=== PATIENT | female | born 1960 | race Caucasian/White ===

== ENCOUNTER 2017-10-11 11:06 | Emergency (ER) | payer OTHER ==
[2017-10-11 11:51] VITALS: BP 118/83
--- NOTE | 2017-10-11 12:47 | UC ---
Throat Pain/Nasal Stephen HPI - HPI Summary HPI Summary: 57 yo female with c/o sinus congestion. Reports 2 weeks of sinus congestion and pain with productive cough. Developed increasing fatigue and low grade fevers over the last 2 days. No n/v/d. No rash. No SOB. - History of Current Complaint Chief Complaint: UCRespiratory Stated Complaint: SINUS COMPLAINT Pain Intensity: 6 - Allergies/Home Medications Allergies/Adverse Reactions: Allergies Allergy/AdvReac Type Severity Reaction Status Date / Time Sulfa (Sulfonamide Allergy Hives Verified 10/11/17 11:55 Antibiotics) PMH/Surg Hx/FS Hx/Imm Hx Cardiovascular History: Hypertension Other History Of: Negative For: Anticoagulant Therapy - Surgical History Surgical History: Yes Surgery Procedure, Year, and Place: MYOMECTOMY 1988, 3 C-SECTIONS, 4 ABDOMINAL SURGERYS - caleb l obstruction 2006(COLOSTOMY,ILEOSTOMY AND REVERSED) HYSTERECTOMY 2004 ,RIGHT MASTECTOMY 03/2010, RIGHT BREAST RECONSTRUCTION REDUCTION AND LIFT. - Social History Alcohol Use: Weekly Substance Use Type: None Smoking Status (MU): Never Smoked Tobacco - Immunization History Most Recent Influenza Vaccination: 2012 Review of Systems Constitutional: Negative Skin: Negative Eyes: Negative ENT: Sore Throat, Nasal Discharge, Sinus Congestion, Sinus Pain/Tenderness Respiratory: Cough Cardiovascular: Negative Gastrointestinal: Negative Genitourinary: Negative Motor: Negative Neurovascular: Negative Musculoskeletal: Negative Neurological: Negative Psychological: Negative Is Patient Immunocompromised?: No All Other Systems Reviewed And Are Negative: Yes Physical Exam Triage Information Reviewed: Yes Appearance: Well-Appearing Vital Signs: Initial Vital Signs Temp 98.5 F 10/11/17 11:48 Pulse 87 10/11/17 11:48 Resp 18 10/11/17 11:48 BP 118/83 10/11/17 11:48 Pulse Ox 100 10/11/17 11:48 Vital Signs Reviewed: Yes ENT: Positive: Other - serous effusion bilaterally Dental: Positive: Other: - maxillary and frontal sinus TTP, L maxillary sinus most tender Neck: Positive: Supple, Nontender, No Lymphadenopathy Respiratory: Positive: Chest non-tender, Lungs clear Cardiovascular: Positive: RRR, No Murmur Abdomen Description: Positive: Nontender Musculoskeletal Exam: Normal Neurological Exam: Normal Psychological Exam: Normal Skin Exam: Normal Throat Pain/Nasal Course/Dx - Course Course Of Treatment: 57 yo female with sinus congestion, pain and low grade fevers. Likely has allergic rhinitis with secondary bacterial sinusitis. - Differential Dx/Diagnosis Differential Diagnosis/HQI/PQRI: Laryngitis, Pharyngitis, Sinusitis, Tonsillitis Provider Diagnoses: 1. Bacterial sinusitis. 2. Allergic rhinitis Discharge - Sign-Out/Discharge Documenting (check all that apply): Discharge/Admit/Transfer - Discharge Plan Condition: Stable Disposition: HOME Prescriptions: Amoxicillin/Clavulanate TAB* [Augmentin TAB 875*] 875 mg PO BID #14 tab Patient Education Materials: Sinusitis (ED), Allergies (ED) Referrals: Mirtha Leyva MD [Primary Care Provider] - If Needed Additional Instructions: Instructions: 1. Start antibiotics as directed 2. Take OTC allergy medication daily (ie. loratadine) - Billing Disposition and Condition Condition: STABLE Disposition: HOME
== END 2017-10-11 12:51 | disposition home or self-care (01) ==
LOC: UCEAST 11:06
DX: J32.9 Chronic sinusitis, unspecified (principal); J30.9 Allergic rhinitis, unspecified; R53.83 Other fatigue; R50.9 Fever, unspecified; I10 Essential (primary) hypertension; Z88.2 Allergy status to sulfonamides
CPT/HCPCS: 99212; G0463

== ENCOUNTER 2021-04-02 13:25 | Inpatient (IN) ==
[2021-04-02 15:05] LABS: Hematocrit 20 % (35-47); Hemoglobin 6.6 g/dL (12.0-16.0); Mean Corpuscular HGB Conc 34 g/dL (31-36); Mean Corpuscular Hemoglobin 35 pg (27-31); Mean Corpuscular Volume 104 fL (80-97); Mean Platelet Volume 8.6 fL (7.4-10.4); Platelet Count 141 10^3/uL (150-450); Red Blood Count 1.89 10^6 /uL (3.70-4.87); Red Cell Distribution Width 30 % (10-15); White Blood Count 9.4 10^3/uL (3.5-10.8)
[2021-04-02 15:06] LABS: ABS Basophils 0.1 10^3/ul (0-0.2); ABS Eosinophils 0.1 10^3/ul (0-0.6); ABS Lymphocytes 0.8 10^3/ul (1.0-4.8); ABS Monocytes 0.8 10^3/ul (0-0.8); ABS Neutrophils 7.7 10^3/ul (1.5-7.7); ABS Nucleated RBC 0.4 10^3/ul; Eosinophil % 1.3 %; Lymphocyte % 8.2 %; Nucleated Red Blood Cells % 4.5
[2021-04-02 15:42] LABS: Albumin 3.7 g/dL (3.2-5.2); Albumin/Globulin Ratio 1.2 (1-3); Total Bilirubin 2.5 mg/dL (0.2-1.0); Total Protein 6.7 g/dL (6.4-8.9)
[2021-04-02] MEDS ORDERED: Iohexol 350 (CONTRAST) 500 ML MDV IV ONE (17:05)
[2021-04-02 19:34] LABS: Rapid COVID-19 Molecular Undetected (Undetected)
[2021-04-02] MEDS ORDERED: Albuterol HFA INHALER 8 gm MDI INH PRN (20:28)
[2021-04-02 23:35] LABS: Ferritin 1489.5 ng/mL (11-307)
[2021-04-03] MEDS: oxyCODONE SR 10 mg TAB PO SCH ×3 (00:59→20:55)
[2021-04-03 06:31] LABS: ABS Basophils 0.1 10^3/ul (0-0.2); ABS Eosinophils 0.2 10^3/ul (0-0.6); ABS Lymphocytes 0.7 10^3/ul (1.0-4.8); ABS Monocytes 0.8 10^3/ul (0-0.8); ABS Neutrophils 7.2 10^3/ul (1.5-7.7); ABS Nucleated RBC 0.7 10^3/ul; Eosinophil % 1.7 %; Hematocrit 20 % (35-47); Hemoglobin 6.7 g/dL (12.0-16.0); Lymphocyte % 7.8 %; Mean Corpuscular HGB Conc 34 g/dL (31-36); Mean Corpuscular Hemoglobin 34 pg (27-31); Mean Corpuscular Volume 97 fL (80-97); Nucleated Red Blood Cells % 7.4; Platelet Count 91 10^3/uL (150-450); Red Cell Distribution Width 31 % (10-15)
[2021-04-03 06:46] LABS: Albumin 3.8 g/dL (3.2-5.2); Albumin/Globulin Ratio 1.3 (1-3); Calcium 9.1 mg/dL (8.6-10.3); Globulin 2.9 g/dL (2-4); Potassium 3.7 mmol/L (3.5-5.0); Total Bilirubin 2.4 mg/dL (0.2-1.0); Total Protein 6.7 g/dL (6.4-8.9)
[2021-04-03 08:06] LABS: Anisocytosis 2+; Polychromasia 2+
[2021-04-03 08:07] LABS: Basophilic Stippling 1+
[2021-04-03] MEDS: DULoxetine DR 60 mg CAP PO SCH (08:55)
[2021-04-03 09:37] LABS: Folate 14.37 ng/mL (5.90-24.80)
[2021-04-03 12:46] LABS: Corrected Retic Count 5.5 % (0.5-1.5); Hematocrit for Retic CNT 21 % (35-47); Immature Retic Fraction 0.81; RBC Retic Count 1.89 10^6/uL (3.70-4.87)
[2021-04-03 12:52] LABS: Direct Bilirubin 0.2 mg/dL (0.03-0.18); Indirect Bilirubin 2.2 mg/dL (0.3-1.0)
[2021-04-03 14:43] LABS: Hematocrit 22 % (35-47); Hemoglobin 7.5 g/dL (12.0-16.0); Mean Corpuscular HGB Conc 34 g/dL (31-36); Mean Corpuscular Hemoglobin 32 pg (27-31); Mean Corpuscular Volume 95 fL (80-97); Mean Platelet Volume 7.8 fL (7.4-10.4); Platelet Count 71 10^3/uL (150-450); Red Blood Count 2.33 10^6 /uL (3.70-4.87); Red Cell Distribution Width 23 % (10-15); White Blood Count 7.4 10^3/uL (3.5-10.8)
[2021-04-03 14:49] LABS: Activated Partial Thrombo Time 24.9 seconds (26.0-38.0); Fibrinogen 337.9 mg/dL (110.8-404.3); INR 1.22 (0.86-1.15)
[2021-04-03] MEDS ORDERED: fentaNYL 100 mcg/2 ml 50 MCG/ML VIAL ONE (16:05)
[2021-04-04 06:03] LABS: INR 1.29 (0.86-1.15)
[2021-04-04 06:19] LABS: Albumin 3.5 g/dL (3.2-5.2); Albumin/Globulin Ratio 1.3 (1-3); Calcium 8.7 mg/dL (8.6-10.3); Direct Bilirubin 0.3 mg/dL (0.03-0.18); Globulin 2.8 g/dL (2-4); Indirect Bilirubin 2.7 mg/dL (0.3-1.0); Potassium 3.9 mmol/L (3.5-5.0); Total Protein 6.3 g/dL (6.4-8.9)
[2021-04-04 08:13] LABS: Hematocrit 22 % (35-47); Hemoglobin 7.6 g/dL (12.0-16.0); Mean Corpuscular HGB Conc 34 g/dL (31-36); Mean Corpuscular Hemoglobin 32 pg (27-31); Mean Corpuscular Volume 94 fL (80-97); Mean Platelet Volume 8.6 fL (7.4-10.4); Platelet Count 48 10^3/uL (150-450); Red Blood Count 2.38 10^6 /uL (3.70-4.87); Red Cell Distribution Width 28 % (10-15); White Blood Count 10.1 10^3/uL (3.5-10.8)
[2021-04-04] MEDS: DULoxetine DR 60 mg CAP PO SCH (09:59)
[2021-04-04] MEDS: oxyCODONE SR 10 mg TAB PO SCH ×2 (10:02→19:45)
[2021-04-04] MEDS: Polyethylene Glycol 3350 17 GM PACKET PO SCH (16:56)
[2021-04-05 05:15] LABS: Hematocrit 18 % (35-47); Hemoglobin 6.3 g/dL (12.0-16.0); Mean Corpuscular HGB Conc 34 g/dL (31-36); Mean Corpuscular Hemoglobin 33 pg (27-31); Mean Corpuscular Volume 97 fL (80-97); Mean Platelet Volume 9.5 fL (7.4-10.4); Platelet Count 30 10^3/uL (150-450); Red Blood Count 1.89 10^6 /uL (3.70-4.87); Red Cell Distribution Width 29 % (10-15); White Blood Count 6.9 10^3/uL (3.5-10.8)
[2021-04-05 05:28] LABS: Albumin 3.2 g/dL (3.2-5.2); Albumin/Globulin Ratio 1.3 (1-3); Calcium 8.2 mg/dL (8.6-10.3); Direct Bilirubin 0.2 mg/dL (0.03-0.18); Globulin 2.5 g/dL (2-4); Indirect Bilirubin 2.2 mg/dL (0.3-1.0); Total Bilirubin 2.4 mg/dL (0.2-1.0); Total Protein 5.7 g/dL (6.4-8.9)
[2021-04-05] MEDS: Polyethylene Glycol 3350 17 GM PACKET PO SCH (08:03)
[2021-04-05] MEDS: DULoxetine DR 60 mg CAP PO SCH ×2 (08:05→08:17)
[2021-04-05] MEDS: oxyCODONE SR 10 mg TAB PO SCH (08:05)
[2021-04-05] MEDS ORDERED: Atropine 1% (ORAL/SL) 15 ML BTL SL PRN (08:46)
[2021-04-05] MEDS ORDERED: Ondansetron ODT 4 mg TAB 4 MG TAB SL PRN (08:46)
[2021-04-05] MEDS ORDERED: Morphine ORAL CONCENTRATE 5 MG/0.25 ML ORAL.SYRIN PO PRN ×2 (08:46→10:18)
[2021-04-05] MEDS ORDERED: Flu vaccine *QUAD* 2021-22* 0.5 ML SYRINGE IM ONE (09:00)
[2021-04-05] MEDS ORDERED: Morphine ER 15 mg TAB ** extended release PO SCH (11:00)
[2021-04-05] MEDS: Morphine ORAL CONCENTRATE 5 MG/0.25 ML ORAL.SYRIN SL PRN ×2 (15:41→19:41)
[2021-04-05] MEDS: Morphine ER 30 mg TAB ** extended release PO SCH (18:18)
[2021-04-06] MEDS: Morphine ER 30 mg TAB ** extended release PO SCH ×2 (00:36→08:38)
[2021-04-06] MEDS: Polyethylene Glycol 3350 17 GM PACKET PO SCH (08:37)
[2021-04-06] MEDS: Morphine ORAL CONCENTRATE 5 MG/0.25 ML ORAL.SYRIN SL PRN (10:23)
[2021-04-06] MEDS ORDERED: Morphine ER 30 mg TAB ** extended release PO SCH (10:41)
[2021-04-06] MEDS: Morphine ER 15 mg TAB ** extended release PO SCH (17:16)
[2021-04-06 19:21] VITALS: BP 99/58
[2021-04-07] MEDS: Morphine ER 15 mg TAB ** extended release PO SCH ×3 (01:05→15:49)
[2021-04-07] MEDS: Senna TAB 8.6 mg TAB PO PRN (01:14)
[2021-04-07] MEDS: Morphine ORAL CONCENTRATE 5 MG/0.25 ML ORAL.SYRIN SL PRN ×2 (06:01→20:46)
[2021-04-07] MEDS: Polyethylene Glycol 3350 17 GM PACKET PO SCH (09:08)
[2021-04-07] MEDS: Docusate LIQ 100 MG/10 ML UDC PO SCH (13:44)
[2021-04-08] MEDS: Morphine ER 15 mg TAB ** extended release PO SCH ×3 (01:29→09:39)
[2021-04-08] MEDS: Senna TAB 8.6 mg TAB PO PRN ×2 (01:29→09:38)
[2021-04-08] MEDS: Polyethylene Glycol 3350 17 GM PACKET PO SCH (09:38)
[2021-04-08] MEDS: Docusate LIQ 100 MG/10 ML UDC PO SCH (09:40)
== END 2021-04-08 15:45 | disposition hospice, home (50) | DRG 542 ==
LOC: ED 13:25 → SUATTDRO 23:30 → EDHOLD 23:30 → MED 04-03 15:06
PROVIDERS: ADMIT Hospitalist; ATTEND Internal Medicine